=== PATIENT | female | born 1970 | race Caucasian/White ===

== ENCOUNTER 2018-09-15 10:04 | Inpatient (IN) ==
[2018-09-15 10:38] LABS: Baso % (Auto) 0.6 % (0.0-2.0); Eos # (Auto) 0.1 th/mm3 (0.0-0.4); Eos % (Auto) 1.2 % (0.0-4.0); Hematocrit 38.6 % (35.0-46.0); Hemoglobin 13.1 gm/dL (11.6-15.3); Lymph # (Auto) 1.7 th/mm3 (1.0-4.8); Lymph % (Auto) 21.3 % (9.0-44.0); Mean Corpuscular HGB Conc 34.1 % (32.0-36.0); Mean Corpuscular Hemoglobin 30.6 pg (27.0-34.0); Mean Corpuscular Volume 89.8 fL (80.0-100.0); Mean Platelet Volume 8.6 fL (7.0-11.0); Mono # (Auto) 0.6 th/mm3 (0.0-0.9); Mono % (Auto) 7.1 % (0.0-8.0); Neut # (Auto) 5.7 th/mm3 (1.8-7.7); Neut % (Auto) 69.8 % (16.0-70.0); Platelet Count 265 th/mm3 (150-450); Red Blood Count 4.29 mil/mm3 (4.00-5.30); Red Cell Distribution Width 12.9 % (11.6-17.2); White Blood Count 8.2 th/mm3 (4.0-11.0)
--- NOTE | 2018-09-15 10:44 | ED ---
HPI General Chief Complaint: Chest Pain Stated Complaint: Medical Time Seen by Provider: 09/15/18 10:18 Source: patient Mode of arrival: EMS Limitations: no limitations History of Present Illness HPI narrative: 47-year-old female complains of chest pain and dysphagia. Patient states that she had intermittent substernal chest pain with radiation to back for the past month. Patient states that the pain usually lasted about 30 minutes and resolved completely. Patient states that the pain is not associate with exertion. Patient states that she has daily chest pain. Patient also complained of trouble swallowing food recently. Patient states that she has a feeling of food stuck in the esophagus around the substernal area. Patient denies any nausea vomiting diarrhea. Patient states that the chest pains or pressure pain substernally with radiation to the back. Patient was seen by Dr. Doherty recently and had EKG done. EMS was called today. Patient was transported to ED for evaluation. Patient has history of hyperlipidemia. Patient denies history hypertension or diabetes. Patient is an ex-smoker. Patient has family history of heart disease. complaint: Reports chest pain STEMI Alert: No Onset (ago): minute(s) Duration: intermittent Onset: during rest Pain location: Reports substernal Severity: moderate Severity scale (1-10): 7 Quality: Reports tightness and aching Pain radiation: Reports back Relieving factors: nothing Exacerbating factors: nothing Treatments prior to arrival chest pain: Reports none Related Data Home Medications Medication Instructions Recorded Confirmed atorvastatin [Lipitor] 40 mg PO DAILY 09/15/18 09/15/18 norgestrel-ethinyl estradiol 1 tab PO DAILY 09/15/18 09/15/18 [Low-Ogestrel (28)] sertraline 50 mg PO DAILY 09/15/18 09/15/18 Allergies Allergy/AdvReac Type Severity Reaction Status Date / Time codeine Allergy Severe HIVES AND Verified 09/15/18 10:16 SHOCK penicillin G Allergy Severe ANAPHYLACTIC Verified 09/15/18 10:16 SHOCK Review of Systems ROS: all other systems reviewed are negative PMFSH Medical History Medical History Depression (Acute) High cholesterol (Acute) Social History Social History Smoking Status: Former smoker How Often Do You Have a Drink Containing Alcohol: 2 to 4 times a month Recent Travel in [facility] within the Last 8 Weeks: No Recent Out of Country Travel within the Last 8 Weeks: No Immunization History Tetanus Immunization: Unsure Exam Narrative Exam Narrative: GENERAL: Well-nourished, well-developed patient. SKIN: Focused skin assessment warm/dry. HEAD: Normocephalic. EYES: No scleral icterus. No injection or drainage. NECK: Supple, trachea midline. No JVD or lymphadenopathy. CARDIOVASCULAR: Regular rate and rhythm without murmurs, gallops, or rubs. RESPIRATORY: Breath sounds equal bilaterally. No accessory muscle use. GASTROINTESTINAL: Abdomen soft, non-tender, nondistended. MUSCULOSKELETAL: No cyanosis, or edema. BACK: Nontender without obvious deformity. No CVA tenderness. Neurologic exam normal. Course Initial Documented Vital Signs Temperature 99.4 F 09/15/18 10:17 Pulse Rate 84 09/15/18 10:17 Respiratory Rate 16 09/15/18 10:17 Blood Pressure 171/98 H 09/15/18 10:17 Pulse Oximetry 100 09/15/18 10:17 Last Documented Vital Signs Temperature 99.4 F 09/15/18 10:17 Pulse Rate 84 09/15/18 10:17 Respiratory Rate 16 09/15/18 10:17 Blood Pressure 171/98 H 09/15/18 10:17 Pulse Oximetry 100 09/15/18 10:17 Medical Decision Making MDM Narrative Medical decision making narrative: 47-year-old female with chest pain and trouble swallowing food. Medical Screen Exam Complete: Yes Emergency Medical Condition: Yes Differential Diagnosis Differential Diagnosis: Differential diagnosis including esophageal spasm, angina, [place], PE, pneumothorax, thoracic dissection. Lab Data Lab results reviewed: Yes I reviewed the patient's lab results. Result diagrams: 09/15/18 10:21 09/15/18 10:21 Lab Results 09/15/18 09/15/18 09/15/18 Range/Units 10:21 10:21 10:21 WBC 8.2 (4.0-11.0) th/mm3 RBC 4.29 (4.00-5.30) mil/mm3 Hgb 13.1 (11.6-15.3) gm/dL Hct 38.6 (35.0-46.0) % MCV 89.8 (80.0-100.0) fL MCH 30.6 (27.0-34.0) pg MCHC 34.1 (32.0-36.0) % RDW 12.9 (11.6-17.2) % Plt Count 265 (150-450) th/mm3 MPV 8.6 (7.0-11.0) fL Neut % (Auto) 69.8 (16.0-70.0) % Lymph % (Auto) 21.3 (9.0-44.0) % [place] % (Auto) 7.1 (0.0-8.0) % Eos % (Auto) 1.2 (0.0-4.0) % Baso % (Auto) 0.6 (0.0-2.0) % Neut # (Auto) 5.7 (1.8-7.7) th/mm3 Lymph # (Auto) 1.7 (1.0-4.8) th/mm3 [place] # (Auto) 0.6 (0.0-0.9) th/mm3 Eos # (Auto) 0.1 (0.0-0.4) th/mm3 Baso # (Auto) 0.0 (0.0-0.2) th/mm3 WBC Differential . Differential Comment Auto diff final PT 11.0 (9.8-11.6) sec INR 1.1 Ratio APTT 23.5 L (24.3-30.1) sec D-Dimer Quant (PE/DVT) 0.31 (0.00-0.50) mg/L FEU Sodium 139 (136-145) meq/L Potassium 3.8 (3.5-5.1) meq/L Chloride 108 H (98-107) meq/L Carbon Dioxide 23.4 (21.0-32.0) meq/L Anion Gap 8 (5-15) meq/L BUN 16 (7-18) mg/dL Creatinine 0.86 (0.50-1.00) mg/dL Estimated GFR 70 L (>89) mL/min Random Glucose 97 (74-106) mg/dL Calcium 8.1 L (8.5-10.1) mg/dL Total Bilirubin 0.4 (0.2-1.0) mg/dL AST 12 L (15-37) U/L ALT 26 (10-53) U/L Alkaline Phosphatase 53 (45-117) U/L Total Creatine Kinase 100 (26-192) U/L Troponin I Less than 0.02 L (0.02-0.05) ng/mL Total Protein 7.5 (6.4-8.2) g/dL Albumin 3.6 (3.4-5.0) g/dL Lipase 132 (73-393) U/L Imaging Data Attestation: I personally reviewed and interpreted this imaging study as follows : Radiologist's impression: Chest X-Ray 09/15/18 10:19 CONCLUSION: Negative examination. Discharge Plan Discharge Disposition Patient Disposition: 30 Still Patient Discharge Details Diagnosis: Chest pain, Dysphagia Physicians Team ED Provider: Jaswant Novoa Rxs /Orders / Referrals /Forms Prescriptions: No Action atorvastatin [Lipitor] 40 mg Tablet 40 mg PO DAILY RF: 0 norgestrel-ethinyl estradiol [Low-Ogestrel (28)] 0.3-30 mg-mcg Tablet 1 tab PO DAILY RF: 0 sertraline 50 mg Tablet 50 mg PO DAILY RF: 0 Discharge Instructions Patient Printed Instructions: Chest Pain (ED) Status ED Status: With Doctor
[2018-09-15 10:57] LABS: Activated Partial Thrombo Time 23.5 sec (24.3-30.1); Alanine Aminotransferase 26 U/L (10-53); Albumin 3.6 g/dL (3.4-5.0); Anion Gap 8 meq/L (5-15); Aspartate Aminotransferase 12 U/L (15-37); Blood Urea Nitrogen 16 mg/dL (7-18); Calcium 8.1 mg/dL (8.5-10.1); Carbon Dioxide 23.4 meq/L (21.0-32.0); Chloride 108 meq/L (98-107); Glomerular Filtration Rate 70 mL/min (>89); Glucose,Random 97 mg/dL (74-106); INR 1.1 Ratio; Lipase 132 U/L (73-393); Potassium 3.8 meq/L (3.5-5.1); Sodium 139 meq/L (136-145)
[2018-09-15 11:01] LABS: Alkaline Phosphatase 53 U/L (45-117); Total Protein 7.5 g/dL (6.4-8.2)
[2018-09-15 11:02] LABS: Creatine Kinase 100 U/L (26-192)
[2018-09-15 11:08] LABS: D-Dimer 0.31 mg/L FEU (0.00-0.50)
--- NOTE | 2018-09-15 11:10 | XR ---
EXAM DATE: 09/15/2018 10:19 AM EDT AGE/SEX: 47 years / Female INDICATIONS: Pain left shoulder and back, pressure and discomfort in chest CLINICAL DATA: This is the patient's initial encounter. Patient reports that signs and symptoms have been present for 3 days and indicates a pain score of 10/10. MEDICAL/SURGICAL HISTORY: None. Angioplasty. COMPARISON: No prior exams available for comparison. FINDINGS: A single AP view of the chest demonstrates the lungs to be symmetrically aerated without evidence of mass, infiltrate or effusion. The cardiomediastinal contours are unremarkable. Osseous structures a re intact. CONCLUSION: Negative examination. Electronically signed by: Jose Armando Flood MD 09/15/2018 11:08 AM EDT
[2018-09-15] MEDS ORDERED: Bisacodyl 10 MG Supp RECTAL PRN (12:33)
--- NOTE | 2018-09-15 13:01 | CT ---
EXAM DATE: 09/15/2018 11:33 AM EDT AGE/SEX: 47 years / Female INDICATIONS: Chest pain radiating to back and left arm for 1 month CLINICAL DATA: This is the patient's initial encounter. Patient reports that signs and symptoms have been present for 1 day and indicates a pain score of 7/10. MEDICAL/SURGICAL HISTORY: None. None. RADIATION DOSE: 15.84 CTDI (mGy) COMPARISON: No prior exams available for comparison. TECHNIQUE: Volumetric scanning was performed using a multi-row detector CT scanner during bolus infu juan ramon of 80 ml Omnipaque 350 (iohexol) nonionic water-soluble contrast as a single exam dose. The da ta was post processed with a variety of visualization algorithms including full volume maximum intens ity projection, multi-planar sliding thin slab reformation, curved planar reformation, and surface re ndering techniques. Using automated exposure control and adjustment of the mA and/or kV according to patient size, radiation dose was kept as low as reasonably achievable to obtain optimal diagnostic q uality images. DICOM format image data is available electronically for review and comparison. FINDINGS: Thoracic aorta is normal in caliber and appearance throughout. No evidence of aneurysm, stenosis or d issection. Classical three-vessel arch anatomy is identified in the visualized arch vessels are charles l. The abdominal aorta is normal in caliber and appearance throughout. Aortic visceral vessels are in tact and unremarkable. Specifically, the celiac, SMA and renal arteries are widely patent. There are accessory renal vessels bilaterally. ARLENE is patent. In the pelvis, the iliacs are normal in appearanc e. The common femoral arteries and visualized proximal thigh vessels are intact. The lungs are symmetrically aerated and clear. There is no evidence of mediastinal mass or adenopathy . No axillary adenopathy or chest wall destruction is evident. In the abdomen, there is a slightly less than 1 cm arterially enhancing focus in segment and a sec ond area of vague focal parenchymal enhancement anterolaterally in segment V. No biliary ductal dilat ation. The spleen, pancreas, adrenals and kidneys are normal. No evidence of retroperitoneal mass or adenopathy. In the pelvis, no mass, adenopathy or free fluid is identified. The urinary bladder and reproductive structures are normal. CONCLUSION: No acute vascular findings. Small enhancing foci in the liver are likely benign, potentially a small FNH in segment . Follow-up with elective outpatient hepatic MRI with contrast suggested Electronically signed by: Jose Armando Flood MD 09/15/2018 1:00 PM EDT
[2018-09-15 13:12] LABS: Chol/HDL Ratio 4.01 Ratio; HDL Cholesterol 54.1 mg/dL (40.0-60.0)
--- NOTE | 2018-09-15 14:25 | P.HP ---
History of Present Illness Primary Care Physician: Callie Cruz Chief Complaint: chest pain, upper back pain, pain with swallowing History of Present Illness: The patient is a very pleasant 47-year-old female with past medical history of hyperlipidemia, anxiety who came to the emergency room with complains of chest pain, back pain and dysphagia. Patient states that she had intermittent substernal chest pain 7/10 in intensity, intermittent, with radiation to back and left arm daily for the past month. Patient states that the pain usually lasted about 30 minutes and resolved completely. However her back pain is still persistent. Also reports associated diaphoresis in the morning. Patient states that the pain is not associate with exertion. no alleviating or aggravating factors reported. [place] ASA on the way to ED. Reports over the past month she had daily chest pain. Patient also complained of trouble swallowing food recently. States that she has a feeling of food being stuck in the esophagus around the substernal area. She did drink water however pain did not disappear. Patient denies any nausea, vomiting, diarrhea. Patient states that the chest pains and pressure pain substernally with radiation to the back and also to the left arm. The pain is reproducible somehow by palpation in the back. Patient was seen by Dr. Weaver recently and had EKG done. EMS was called today. Patient was transported to ED for evaluation. Patient denies history hypertension or diabetes. Patient is an ex-smoker. Patient has family history of heart disease her father with multiple IN starting at the age of 48. Patient reports having stress over the past months. Inpatient Certification: I certify that the inpatient services were ordered in accordance with Medicare regulations governing the order. This includes certification that hospital inpatient services are reasonable and necessary and in the case of services not specified as inpatient-only under 42 CFR 419.22(n), that they are appropriately provided as inpatient services in accordance to with the 2-midnight benchmark under 43 CFR 412.3(e) Estimated Total Length of Stay (Days): 3 Plans for Post Hospital Care: Home Review of Systems All other systems reviewed negative except as stated in HPI PMFSH - History History Provided By: Patient, Household Assistant / EMT - Medical History Medical History: Medical History (Last Reviewed 09/15/18 @ 14:40 by Adri Iniguez MD) Depression High cholesterol - Surgical History Surgical History: Surgical History (Last Updated 09/15/18 @ 14:40 by Adri Iniguez MD) H/O breast augmentation - Family History Family History: Family History (Last Updated 09/15/18 @ 14:41 by Adri Iniguez MD) Father Myocardial infarct Diabetes HLD (hyperlipidemia) - Social History I have reviewed the patient's Social History: Yes - Tobacco History Smoking Status: Former smoker - Alcohol History How Often Do You Have a Drink Containing Alcohol: 2 to 4 times a month - Travel History Recent Travel in the [place] Within the Last 8 Weeks: No Recent Travel Out of the Country Within the Last 8 Weeks: No - Immunization History Tetanus Immunization: Unsure Medications and Allergies Active Medications: Active Medications Al Hydroxide/Mg Hydroxide (Milk Of Magnesia Liq) 30 ml PO Q12H PRN PRN Reason: Mild Constipation Atorvastatin Calcium (Lipitor) 40 mg PO DAILY DEMETRIS Bisacodyl (Dulcolax Supp) 10 mg RECTAL DAILY PRN PRN Reason: SEVERE CONSITIPATION Lactulose (Lactulose Liq) 30 ml PO DAILY PRN PRN Reason: SEVERE CONSITIPATION Ondansetron HCl (Zofran Inj) 4 mg IV.PUSH Q6H PRN PRN Reason: NAUSEA OR VOMITING Pt Own Med: Norgestrel-Ethinyl Estradiol [Low- Ogestrel 28] 0 each PO DAILY DEMETRIS Senna/Docusate Sodium (Kiera-Colace) 1 tab PO BID DEMETRIS Sennosides (Senokot) 17.2 mg PO Q12H PRN PRN Reason: Moderate Constipation Sertraline HCl (Zoloft) 50 mg PO DAILY DEMETRIS Allergies Allergy/AdvReac Type Severity Reaction Status Date / Time codeine Allergy Severe HIVES AND Verified 09/15/18 10:16 SHOCK penicillin G Allergy Severe ANAPHYLACTIC Verified 09/15/18 10:16 SHOCK Home Medications Medication Instructions Recorded Confirmed Type atorvastatin [Lipitor] 40 mg PO DAILY 09/15/18 09/15/18 History norgestrel-ethinyl estradiol 1 tab PO DAILY 09/15/18 09/15/18 History [Low-Ogestrel (28)] sertraline 50 mg PO DAILY 09/15/18 09/15/18 History Exam Vital signs: Vital Signs 09/15/18 10:17 09/15/18 11:34 09/15/18 13:19 Temperature 99.4 F Pulse Rate 84 76 83 Respiratory Rate 16 17 17 Blood Pressure 171/98 H 164/94 H 157/81 H Pulse Oximetry 100 100 100 Intake & Output 09/14/18 09/15/18 09/15/18 18:59 06:59 18:59 Weight 74.843 kg Narrative: GENERAL: Very pleasant 47 yo F appearing younger than the stated age. SKIN: Warm and dry. HEAD: Atraumatic. Normocephalic. EYES: Pupils equal and round. No scleral icterus. No injection or drainage. ENT: No nasal bleeding or discharge. Mucous membranes pink and moist. NECK: Trachea midline. No JVD. CARDIOVASCULAR: Regular rate and rhythm. RESPIRATORY: No accessory muscle use. Clear to auscultation. Breath sounds equal bilaterally. GASTROINTESTINAL: Abdomen soft, non-tender, nondistended. Hepatic and splenic margins not palpable. MUSCULOSKELETAL: Left trapezius muscle tenderness and cervical paravertebral muscle spasm,, tender to palpation, Extremities without clubbing, cyanosis, or edema. No obvious deformities. NEUROLOGICAL: Awake and alert. No obvious cranial nerve deficits. Motor grossly within normal limits. Five out of 5 muscle strength in the arms and legs. Normal speech. PSYCHIATRIC: Appropriate mood and affect; insight and judgment normal. Results - Labs CBC & Chem 7: 09/15/18 10:21 09/15/18 10:21 Labs: Laboratory Results - last 24 hr 09/15/18 09/15/18 09/15/18 10:21 10:21 10:21 WBC 8.2 RBC 4.29 Hgb 13.1 Hct 38.6 MCV 89.8 MCH 30.6 MCHC 34.1 RDW 12.9 Plt Count 265 MPV 8.6 Neut % (Auto) 69.8 Lymph % (Auto) 21.3 [place] % (Auto) 7.1 Eos % (Auto) 1.2 Baso % (Auto) 0.6 Neut # (Auto) 5.7 Lymph # (Auto) 1.7 [place] # (Auto) 0.6 Eos # (Auto) 0.1 Baso # (Auto) 0.0 WBC Differential . Differential Comment Auto diff final PT 11.0 INR 1.1 APTT 23.5 L D-Dimer Quant (PE/DVT) 0.31 Sodium 139 Potassium 3.8 Chloride 108 H Carbon Dioxide 23.4 Anion Gap 8 BUN 16 Creatinine 0.86 Estimated GFR 70 L Random Glucose 97 Calcium 8.1 L Total Bilirubin 0.4 AST 12 L ALT 26 Alkaline Phosphatase 53 Total Creatine Kinase 100 Troponin I Less than 0.02 L Total Protein 7.5 Albumin 3.6 Triglycerides Cholesterol LDL Cholesterol, Calc HDL Cholesterol Cholesterol/HDL Ratio Lipase 132 09/15/18 10:21 WBC RBC Hgb Hct MCV MCH MCHC RDW Plt Count MPV Neut % (Auto) Lymph % (Auto) [place] % (Auto) Eos % (Auto) Baso % (Auto) Neut # (Auto) Lymph # (Auto) [place] # (Auto) Eos # (Auto) Baso # (Auto) WBC Differential Differential Comment PT INR APTT D-Dimer Quant (PE/DVT) Sodium Potassium Chloride Carbon Dioxide Anion Gap BUN Creatinine Estimated GFR Random Glucose Calcium Total Bilirubin AST ALT Alkaline Phosphatase Total Creatine Kinase Troponin I Total Protein Albumin Triglycerides 85 Cholesterol 217 H LDL Cholesterol, Calc 146 H HDL Cholesterol 54.1 Cholesterol/HDL Ratio 4.01 Lipase - Imaging Impressions Thoracic Aorta CT 09/15/18 10:18 CONCLUSION: No acute vascular findings. Small enhancing foci in the liver are likely benign, potentially a small FNH in segment . Follow-up with elective outpatient hepatic MRI with contrast suggested Chest X-Ray 09/15/18 10:19 CONCLUSION: Negative examination. Caprini VTE Risk Assessment Caprini VTE Risk Assessment: No/Low Risk (score <= 1) Caprini Risk Assessment Model: Point Value = 1 Point Value = 2 Point Value = 3 Point Value = 5 Age 41-60 Minor surgery BMI > 25 kg/m2 Swollen legs Varicose veins or History of unexplained or recurrent spontaneous Oral contraceptives or hormone replacement Sepsis (< 1 month) Serious lung disease, including pneumonia (< 1 month) Abnormal pulmonary function Acute myocardial infarction Congestive heart failure (< 1 month) History of inflammatory bowel disease Medical patient at bed rest Age 61-74 Arthroscopic surgery Major open surgery (> 45 min) Laparoscopic surgery (> 45 min) Malignancy Confined to bed (> 72 hours) Immobilizing plaster cast Central venous access Age >= 75 History of VTE Family history of VTE Factor V Leiden Prothrombin [id number] Lupus anticoagulant Anticardiolipin antibodies Elevated serum homocysteine Heparin-induced thrombocytopenia Other congenital or acquired thrombophilia Stroke (< 1 month) Elective arthroplasty Hip, pelvis, or leg fracture Acute spinal cord injury (< 1 month) Prophylaxis Regimen: Total Risk Factor Score Risk Level Prophylaxis Regimen 0-1 Low Early ambulation 2 Moderate Order ONE of the following: *Sequential Compression Device (SCD) *Heparin 5000 units SQ BID 3-4 Higher Order ONE of the following medications: *Heparin 5000 units SQ TID *Enoxaparin/Lovenox 40 mg SQ daily (WT < 150 kg, CrCl > 30 mL/min) *Enoxaparin/Lovenox 30 mg SQ daily (WT < 150 kg, CrCl > 10-29 mL/min) *Enoxaparin/Lovenox 30 mg SQ BID (WT < 150 kg, CrCl > 30 mL/min) AND/OR *Sequential Compression Device (SCD) 5 or more Highest Order ONE of the following medications: *Heparin 5000 units SQ TID (Preferred with Epidurals) *Enoxaparin/Lovenox 40 mg SQ daily (WT < 150 kg, CrCl > 30 mL/min) *Enoxaparin/Lovenox 30 mg SQ daily (WT < 150 kg, CrCl > 10-29 mL/min) *Enoxaparin/Lovenox 30 mg SQ BID (WT < 150 kg, CrCl > 30 mL/min) AND *Sequential Compression Device (SCD) Assessment and Plan - Plan Very pleasant 47-year-old female with past medical history of hyperlipidemia, anxiety who presented to the emergency room with complaints of chest pain, back pain pain with swallowing Chest pain radiating to the back and also left arm Back pain Muscle spasm Odynophagia Hyperlipidemia Anxiety Incidental 9.4 mm liver nodule found on CT Chest x-ray reviewed and negative CTA chest also reviewed and findings discussed with ER physician and also with the patient. There is no PE, normal aorta, incidental 9.4 mm liver nodule. Discussed with the patient to follow-up as outpatient imaging might need MRI of the liver as outpatient First troponin is negative, trend troponin is EKG reviewed no ischemic changes normal EKG. Will monitor on telemetry. Will repeat EKGs. Consult Dr. Hsu cardiology Patient also with odynophagia will consult GI Morphine for severe chest pain or breakthrough pain [place] 5/325 for pain And Flexeril 5 mg 3 times daily as needed some muscle relaxer Give Ativan prn for breakthrough anxiety Restart home medications as appropriate Consult OT tomorrow DVT prophylaxis SCDs/teds ambulation Code Status: Full code Discussed Condition With: The patient, nurse, ED physician Dr. Novoa
[2018-09-15] MEDS ORDERED: Morphine Sulfate Inj 2 MG/ML Vial IV.PUSH PRN (14:26)
[2018-09-15] MEDS ORDERED: LORazepam 0.5 MG Tablet PO PRN (14:53)
--- NOTE | 2018-09-15 16:52 | P.CONGI ---
History of Present Illness Consult date: 09/15/18 Consult reason: Dysphasia Chief complaint: Chest pain, Dysphasia History of Present Illness: This is a 47-year-old female who came into the emergency room today for intermittent chest pain epigastric region which has waxed and waned over the past month patient states that she got up this a.m. and felt like she was having a heart attack that was so much pressure in her chest she also notes that this pain radiates back into her mid back. According to the patient and the record she does have daily chest pain and also describes it as dysphasia with a pressure sensation unaffected by food. Currently patient denies any abdominal pain no diarrhea no constipation. 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 She also notes increased stressors over the past 6 months. Patient also notes positive family history of uncle in his late 50s early 60s of colon cancer. Current labs reveal hemoglobin 13.1, WBC count 8.2, PT/INR 1.1, bilirubin and LFTs show no elevation along with normal lipase and alkaline phosphatase. Initial cardiac workup has been started which include CT scan of the chest which showed small enhanced foci liver lesion likely benign, possible focal nodular hyper dysplasia otherwise unremarkable. Patient does note colonoscopy this past year for her positive family history per Dr. Ivan but no previous EGD. Patient has used Tums in the past for her GERD symptoms but is never been on any PPI or [id number] medications. Patient does note rare social alcohol and is an ex-smoker. Gastroenterology has been consulted to assist with her symptom management, evaluation, as well as plan of care <Rose Jang - Last Filed: 09/15/18 16:32> Review of Systems All other systems reviewed negative except as stated in HPI <Rose Jang - Last Filed: 09/15/18 16:32> PMFSH - History History Provided By: Patient, Spring Tester / EMT - Medical History Medical History: Medical History (Last Reviewed 09/15/18 @ 14:40 by Adri Iniguez MD) Depression High cholesterol - Surgical History Surgical History: Surgical History (Last Updated 09/15/18 @ 14:40 by Adri Iniguez MD) H/O breast augmentation - Family History Family History: Family History (Last Updated 09/15/18 @ 14:41 by Adri Iniguez MD) Father Myocardial infarct Diabetes HLD (hyperlipidemia) - Tobacco History Smoking Status: Former smoker - Alcohol History How Often Do You Have a Drink Containing Alcohol: 2 to 4 times a month - Travel History Recent Travel in the [place] Within the Last 8 Weeks: No Recent Travel Out of the Country Within the Last 8 Weeks: No - Immunization History Tetanus Immunization: Unsure <Rose Jang - Last Filed: 09/15/18 16:32> - Medical History Medical History: Medical History (Last Reviewed 09/15/18 @ 14:40 by Ardi Iniguez MD) Depression High cholesterol - Surgical History Surgical History: Surgical History (Last Updated 09/15/18 @ 14:40 by Adri Iniguez MD) H/O breast augmentation - Family History Family History: Family History (Last Updated 09/15/18 @ 14:41 by Adri Iniguez MD) Father Myocardial infarct Diabetes HLD (hyperlipidemia) <Alden Elmore - Last Filed: 09/15/18 19:41> Medications and Allergies Active Medications: Active Medications Hydrocodone Bitart/Acetaminophen ([place] 5/325) 1 tab PO Q6H PRN PRN Reason: moderate pain 3-10 Al Hydroxide/Mg Hydroxide (Milk Of Magnesia Liq) 30 ml PO Q12H PRN PRN Reason: Mild Constipation Atorvastatin Calcium (Lipitor) 40 mg PO DAILY DEMETRIS Bisacodyl (Dulcolax Supp) 10 mg RECTAL DAILY PRN PRN Reason: SEVERE CONSITIPATION Cyclobenzaprine HCl (Flexeril) 5 mg PO Q8H PRN PRN Reason: muscle spasm Lactulose (Lactulose Liq) 30 ml PO DAILY PRN PRN Reason: SEVERE CONSITIPATION Lorazepam (Ativan) 0.5 mg PO Q8H PRN PRN Reason: breakthrough anxiety Morphine Sulfate (Morphine Inj) 2 mg IV.PUSH Q6HR PRN PRN Reason: severe chest pain or breakth Ondansetron HCl (Zofran Inj) 4 mg IV.PUSH Q6H PRN PRN Reason: NAUSEA OR VOMITING Pt Own Med: Norgestrel-Ethinyl Estradiol [Low- Ogestrel 28] 0 each PO DAILY DEMETRIS Senna/Docusate Sodium (Kiera-Colace) 1 tab PO BID [facility] Sennosides (Senokot) 17.2 mg PO Q12H PRN PRN Reason: Moderate Constipation Sertraline HCl (Zoloft) 50 mg PO DAILY [facility] <Rose Jang - Last Filed: 09/15/18 16:32> Active Medications: Active Medications Hydrocodone Bitart/Acetaminophen ([place] 5/325) 1 tab PO Q6H PRN PRN Reason: moderate pain 3-10 Last Admin: 09/15/18 17:11 Dose: 1 tab Al Hydroxide/Mg Hydroxide (Milk Of Magnesia Liq) 30 ml PO Q12H PRN PRN Reason: Mild Constipation Atorvastatin Calcium (Lipitor) 40 mg PO DAILY [facility] Bisacodyl (Dulcolax Supp) 10 mg RECTAL DAILY PRN PRN Reason: SEVERE CONSITIPATION Cyclobenzaprine HCl (Flexeril) 5 mg PO Q8H PRN PRN Reason: muscle spasm Enoxaparin Sodium (Lovenox Inj) 50 mg SQ Q12HR [facility] Lactulose (Lactulose Liq) 30 ml PO DAILY PRN PRN Reason: SEVERE CONSITIPATION Lorazepam (Ativan) 0.5 mg PO Q8H PRN PRN Reason: breakthrough anxiety Morphine Sulfate (Morphine Inj) 2 mg IV.PUSH Q6HR PRN PRN Reason: severe chest pain or breakth Ondansetron HCl (Zofran Inj) 4 mg IV.PUSH Q6H PRN PRN Reason: NAUSEA OR VOMITING Pt Own Med: Norgestrel-Ethinyl Estradiol [Low- Ogestrel 28] 0 each PO DAILY [facility] Senna/Docusate Sodium (Kiera-Colace) 1 tab PO BID [facility] Sennosides (Senokot) 17.2 mg PO Q12H PRN PRN Reason: Moderate Constipation Sertraline HCl (Zoloft) 50 mg PO DAILY [facility] <Alden Elmore - Last Filed: 09/15/18 19:41> Allergies Allergy/AdvReac Type Severity Reaction Status Date / Time codeine Allergy Severe HIVES AND Verified 09/15/18 10:16 SHOCK penicillin G Allergy Severe ANAPHYLACTIC Verified 09/15/18 10:16 SHOCK Home Medications Medication Instructions Recorded Confirmed Type atorvastatin [Lipitor] 40 mg PO DAILY 09/15/18 09/15/18 History norgestrel-ethinyl estradiol 1 tab PO DAILY 09/15/18 09/15/18 History [Low-Ogestrel (28)] sertraline 50 mg PO DAILY 09/15/18 09/15/18 History Exam Vital signs: Vital Signs 09/15/18 10:17 09/15/18 11:34 09/15/18 13:19 Temperature 99.4 F Pulse Rate 84 76 83 Respiratory Rate 16 17 17 Blood Pressure 171/98 H 164/94 H 157/81 H Pulse Oximetry 100 100 100 Intake & Output 09/14/18 09/15/18 09/15/18 18:59 06:59 18:59 Weight 74.843 kg - Constitutional moderate distress, cooperative, agitated (Mild anxiety over current condition) - Routine HEENT Exam Head: Present: normocephalic, atraumatic ENT: Present: mucous membranes moist - Routine Neck Exam Present: supple - Routine Respiratory Exam Present: accessory muscle use (Even, unlabored no obvious shortness of breath) - Routine Cardiovascular Exam Present: S1, S2 - Routine Abdominal Exam Present: soft (Epigastric and mid chest pain radiates into her back), normoactive bowel sounds (No tenderness no distention no diarrhea no constipation) - Routine Skin Exam Present: intact <Rose Jang - Last Filed: 09/15/18 16:32> Vital signs: Vital Signs 09/15/18 10:17 09/15/18 11:34 09/15/18 13:19 Temperature 99.4 F Pulse Rate 84 76 83 Respiratory Rate 16 17 17 Blood Pressure 171/98 H 164/94 H 157/81 H Pulse Oximetry 100 100 100 09/15/18 15:00 Temperature Pulse Rate Respiratory Rate Blood Pressure Pulse Oximetry 100 Intake & Output 09/15/18 09/15/18 09/16/18 06:59 18:59 06:59 Intake Total 240 / 240 Output Total 100 / 100 Balance 140 / 140 Weight 74.843 kg Intake: Oral 240 / 240 Output: Urine 100 / 100 <Alden Elmore - Last Filed: 09/15/18 19:41> Results - Labs CBC & Chem 7: 09/15/18 10:21 09/15/18 10:21 Labs: Laboratory Results - last 24 hr 09/15/18 09/15/18 09/15/18 10:21 10:21 10:21 WBC 8.2 RBC 4.29 Hgb 13.1 Hct 38.6 MCV 89.8 MCH 30.6 MCHC 34.1 RDW 12.9 Plt Count 265 MPV 8.6 Neut % (Auto) 69.8 Lymph % (Auto) 21.3 [place] % (Auto) 7.1 Eos % (Auto) 1.2 Baso % (Auto) 0.6 Neut # (Auto) 5.7 Lymph # (Auto) 1.7 [place] # (Auto) 0.6 Eos # (Auto) 0.1 Baso # (Auto) 0.0 WBC Differential . Differential Comment Auto diff final PT 11.0 INR 1.1 APTT 23.5 L D-Dimer Quant (PE/DVT) 0.31 Sodium 139 Potassium 3.8 Chloride 108 H Carbon Dioxide 23.4 Anion Gap 8 BUN 16 Creatinine 0.86 Estimated GFR 70 L Random Glucose 97 Calcium 8.1 L Total Bilirubin 0.4 AST 12 L ALT 26 Alkaline Phosphatase 53 Total Creatine Kinase 100 Troponin I Less than 0.02 L Total Protein 7.5 Albumin 3.6 Triglycerides Cholesterol LDL Cholesterol, Calc HDL Cholesterol Cholesterol/HDL Ratio Lipase 132 09/15/18 09/15/18 10:21 15:03 WBC RBC Hgb Hct MCV MCH MCHC RDW Plt Count MPV Neut % (Auto) Lymph % (Auto) [place] % (Auto) Eos % (Auto) Baso % (Auto) Neut # (Auto) Lymph # (Auto) [place] # (Auto) Eos # (Auto) Baso # (Auto) WBC Differential Differential Comment PT INR APTT D-Dimer Quant (PE/DVT) Sodium Potassium Chloride Carbon Dioxide Anion Gap BUN Creatinine Estimated GFR Random Glucose Calcium Total Bilirubin AST ALT Alkaline Phosphatase Total Creatine Kinase Troponin I Less than 0.02 L Total Protein Albumin Triglycerides 85 Cholesterol 217 H LDL Cholesterol, Calc 146 H HDL Cholesterol 54.1 Cholesterol/HDL Ratio 4.01 Lipase - Imaging Impressions Thoracic Aorta CT 09/15/18 10:18 CONCLUSION: No acute vascular findings. Small enhancing foci in the liver are likely benign, potentially a small FNH in segment . Follow-up with elective outpatient hepatic MRI with contrast suggested Chest X-Ray 09/15/18 10:19 CONCLUSION: Negative examination. <Rose Jang - Last Filed: 09/15/18 16:32> - Labs CBC & Chem 7: 09/15/18 10:21 09/15/18 10:21 Labs: Laboratory Results - last 24 hr 09/15/18 09/15/18 09/15/18 10:21 10:21 10:21 WBC 8.2 RBC 4.29 Hgb 13.1 Hct 38.6 MCV 89.8 MCH 30.6 MCHC 34.1 RDW 12.9 Plt Count 265 MPV 8.6 Neut % (Auto) 69.8 Lymph % (Auto) 21.3 [place] % (Auto) 7.1 Eos % (Auto) 1.2 Baso % (Auto) 0.6 Neut # (Auto) 5.7 Lymph # (Auto) 1.7 [place] # (Auto) 0.6 Eos # (Auto) 0.1 Baso # (Auto) 0.0 WBC Differential . Differential Comment Auto diff final PT 11.0 INR 1.1 APTT 23.5 L D-Dimer Quant (PE/DVT) 0.31 Sodium 139 Potassium 3.8 Chloride 108 H Carbon Dioxide 23.4 Anion Gap 8 BUN 16 Creatinine 0.86 Estimated GFR 70 L Random Glucose 97 Calcium 8.1 L Total Bilirubin 0.4 AST 12 L ALT 26 Alkaline Phosphatase 53 Total Creatine Kinase 100 Troponin I Less than 0.02 L Total Protein 7.5 Albumin 3.6 Triglycerides Cholesterol LDL Cholesterol, Calc HDL Cholesterol Cholesterol/HDL Ratio Lipase 132 Urine Color Urine Clarity Urine pH Ur Specific [place] Urine Protein Urine Glucose (UA) Urine Ketones Urine Occult Blood Urine Nitrate Urine Bilirubin Urine Urobilinogen Ur Leukocyte Esterase Urine RBC Urine WBC Ur Squamous Epith Cells Urine Bacteria Urine Mucus Micro UA Comment Ur Microscopic Review Urine Culture Comments 09/15/18 09/15/18 09/15/18 10:21 15:03 17:15 WBC RBC Hgb Hct MCV MCH MCHC RDW Plt Count MPV Neut % (Auto) Lymph % (Auto) [place] % (Auto) Eos % (Auto) Baso % (Auto) Neut # (Auto) Lymph # (Auto) [place] # (Auto) Eos # (Auto) Baso # (Auto) WBC Differential Differential Comment PT INR APTT D-Dimer Quant (PE/DVT) Sodium Potassium Chloride Carbon Dioxide Anion Gap BUN Creatinine Estimated GFR Random Glucose Calcium Total Bilirubin AST ALT Alkaline Phosphatase Total Creatine Kinase Troponin I Less than 0.02 L Total Protein Albumin Triglycerides 85 Cholesterol 217 H LDL Cholesterol, Calc 146 H HDL Cholesterol 54.1 Cholesterol/HDL Ratio 4.01 Lipase Urine Color Yellow Urine Clarity Hazy H Urine pH 5.0 Ur Specific [place] 1.055 H Urine Protein Negative Urine Glucose (UA) Negative Urine Ketones Negative Urine Occult Blood Negative Urine Nitrate Negative Urine Bilirubin Negative Urine Urobilinogen Less than 2 Ur Leukocyte Esterase Small H Urine RBC 2 Urine WBC 5 Ur Squamous Epith Cells 7 Urine Bacteria Rare H Urine Mucus Few H Micro UA Comment Culture not ind Ur Microscopic Review Not Reportable Urine Culture Comments Culture not ind - Imaging Impressions Thoracic Aorta CT 09/15/18 10:18 CONCLUSION: No acute vascular findings. Small enhancing foci in the liver are likely benign, potentially a small FNH in segment . Follow-up with elective outpatient hepatic MRI with contrast suggested Chest X-Ray 09/15/18 10:19 CONCLUSION: Negative examination. <Alden Elmore E - Last Filed: 09/15/18 19:41> Assessment and Plan - Plan 47-year-old female who came into the emergency room today for intermittent chest pain epigastric region which has waxed and waned over the past month patient states that she got up this a.m. and felt like she was having a heart attack that was so much pressure in her chest she also notes that this pain radiates back into her mid back. According to the patient and the record she does have daily chest pain and also describes it as dysphasia with a pressure sensation unaffected by food. Currently patient denies any abdominal pain no diarrhea no constipation. 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 She also notes increased stressors over the past 6 months. Patient also notes positive family history of uncle in his late 50s early 60s of colon cancer. Current labs reveal hemoglobin 13.1, WBC count 8.2, PT/INR 1.1, bilirubin and LFTs show no elevation along with normal lipase and alkaline phosphatase. Initial cardiac workup has been started which include CT scan of the chest which showed small enhanced foci liver lesion likely benign, possible focal nodular hyper dysplasia otherwise unremarkable. Patient does note colonoscopy this past year for her positive family history per Dr. Ivan but no previous EGD. Patient has used Tums in the past for her GERD symptoms but is never been on any PPI or [id number] medications. Patient does note rare social alcohol and is an ex-smoker. Gastroenterology has been consulted to assist with her symptom management, evaluation, as well as plan of care Midsternal chest pain with dysphasia/possibly dyspepsia and the sensation of food getting stuck in her esophagus. Discomfort seems to wax and wane but is still fairly constant today. This pain could be related to Schatzki's ring / esophageal stricture, chest pain/pressure does radiate into the back with essentially negative CT of the chest. Patient came in and went in to rule out cardiac event protocol. 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 Dyspepsia /GERD symptoms have minimized over the past 15 years. Denies any nausea or vomiting Positive family history of colon cancer uncle in his late 50s early 60s Previous colonoscopy with Dr. Ivan 1 year ago, uneventful and no previous EGD Cardiac consult and workup is pending, once patient is cleared patient will need EGD with possible dilation. Patient has negative troponins so far. Plan Diet n.p.o. or clear liquids this p.m. N.p.o. at midnight Plan for EGD with possible dilation dependent on cardiac clearance Monitor lab Further recommendations to follow Patient was seen per myself and Dr. Elmore, note was written on her behalf <Rose Jang M - Last Filed: 09/15/18 16:32> - Plan Patient seen and examined Agree with above history and physical Continue with current supportive care Monitor labs EGD once cleared by cardiology <Alden Elmore - Last Filed: 09/15/18 19:41>
[2018-09-15 18:08] LABS: Bacteria,Urine Rare /hpf; Bilirubin,Urine Negative (Negative); Clarity,Urine Hazy (Clear); Color,Urine Yellow (Yellw/Straw); Glucose,Urine (UA) Negative (Negative); Leukocyte Esterase,Urine Small (Negative); Mucus,Urine Few /lpf (Occasional); Nitrite,Urine Negative (Negative); Specific Gravity,Urine 1.055 (1.002-1.035); Squamous Epithelial Cell,Urine 7 /hpf (0-5)
--- NOTE | 2018-09-15 19:10 | MB ---
cc: Alyssia Hsu MD DATE: 09/15/2018 REASON FOR CONSULTATION: Chest pain. HISTORY OF PRESENT ILLNESS: Ms. Bennett is a 47-year-old female who presented for chest and back pain as well as dysphagia. She reports the back pain that has been ongoing for months. She more recently has had intermittent chest pain that today has become a substernal constant chest discomfort. This started in the constant phase for about 24 hours. She also notes that she has difficulty swallowing with a pressure sensation in her chest. She notes that this has not been impacted by activities such as walking. That is her preferred exercise. She has not had any more strenuous activities. She notes that she has had intermittent episodes of back pain, which has progressed and is quite severe and unremitting at this time. PAST MEDICAL HISTORY: Significant for depression and hyperlipidemia. She denies any history of diabetes, hypertension. PAST SURGICAL HISTORY: Includes breast augmentation. FAMILY HISTORY: Positive for CAD, diabetes and hyperlipidemia. SOCIAL HISTORY: The patient is a former smoker. CURRENT MEDICATIONS: Include: 1. Atorvastatin 40 mg at bedtime. ALLERGIES: CODEINE AND PENICILLIN. PHYSICAL EXAMINATION: VITAL SIGNS: 157/81. GENERAL: She is a well-appearing female, who is in mild distress with regard to her back and somewhat agitated. NECK: Free from JVD. There is some tenderness at the base of the neck over the spine. LUNGS: Bilaterally clear to auscultation. CARDIOVASCULAR: She has a normal S1 and S2. Did not appreciate any murmurs, rubs or gallops. ABDOMEN: Soft. There are normal bowel sounds. EXTREMITIES: Free from edema. LABORATORY DATA: Significant for serial troponins of less than 0.02/less than 0.02. Her LDL is 146. ECG shows a normal sinus rhythm with poor R-wave progression. Chest x-ray was negative for any acute process. Thoracic abdominal aorta CT shows no acute vascular findings. There are small enhancing foci in the liver. The thoracic aorta was a normal caliber. IMPRESSION: 1. Atypical chest pain - the patient certainly has several cardiovascular risk factors. Her presentation is a bit unusual for an ischemic etiology. At this point, her ECG and enzymes are negative x2. We will obtain a third set. I did discuss with her further evaluation with a cardiac catheterization versus a nuclear stress test. The risks and benefits of both were discussed and she was rather certain she does not want a heart catheterization unless her heart enzymes are elevated. She in fact requested to be discharged home. I told her that I thought it would be best if she stayed in the hospital for at least a stress test at this point. Ideally, I would like to get her pain free. This may be quite difficult though as her pain has been rather chronic in nature. 2. Dysphagia - GI consult is noted. They would like to do an EGD and possible dilation provided her cardiac workup is negative. I do believe this would be reasonable if her stress test is not ischemic. 3. Elevated blood pressure - the patient's pressure is quite elevated. She reports this is unusual for her. We will observe her for now and this is felt likely secondary to her pain. 4. Neck tenderness- The patient and I discussed CT of neck/ spine for further evaluation and she declined at this time. Alysisa Hsu MD BAB/ct , 05:41 PM , 05:51 PM [place]
--- NOTE | 2018-09-15 19:29 | ECG ---
Date Performed: 09/15/2018 Time Performed: 15:23:36 PTAGE: 47 years EKG: Sinus rhythm . Poor R wave progression - probable normal variant Borderline ECG No significant change from prior e lectrocardiogram. PREVIOUS TRACING : 09/15/2018 10.25 DOCTOR: Albaro Delacruz Interpretating Date/Time 09/15/2018 19:27:47
[2018-09-15] MEDS: Enoxaparin Inj 60 MG/0.6 ML Syringe SQ SCH (21:14)
[2018-09-15] MEDS: Senna/Docusate Sodium 8.6/50 MG Tablet PO SCH (21:15)
[2018-09-16 06:15] LABS: Baso % (Auto) 0.8 % (0.0-2.0); Eos # (Auto) 0.2 th/mm3 (0.0-0.4); Eos % (Auto) 3.4 % (0.0-4.0); Lymph % (Auto) 35.2 % (9.0-44.0); Mean Corpuscular HGB Conc 33.4 % (32.0-36.0); Mean Corpuscular Hemoglobin 30.3 pg (27.0-34.0); Mean Corpuscular Volume 90.7 fL (80.0-100.0); Mean Platelet Volume 8.7 fL (7.0-11.0); Mono # (Auto) 0.5 th/mm3 (0.0-0.9); Mono % (Auto) 8.1 % (0.0-8.0); Neut % (Auto) 52.5 % (16.0-70.0); Platelet Count 235 th/mm3 (150-450); Red Cell Distribution Width 13.1 % (11.6-17.2); White Blood Count 5.8 th/mm3 (4.0-11.0)
[2018-09-16 06:43] LABS: Alanine Aminotransferase 21 U/L (10-53); Aspartate Aminotransferase 10 U/L (15-37); Calcium 8.1 mg/dL (8.5-10.1); Chloride 109 meq/L (98-107); Glomerular Filtration Rate 69 mL/min (>89); Glucose,Random 84 mg/dL (74-106); Potassium 3.8 meq/L (3.5-5.1); Sodium 141 meq/L (136-145)
[2018-09-16 06:50] LABS: Albumin 3.3 g/dL (3.4-5.0); Alkaline Phosphatase 49 U/L (45-117); Anion Gap 7 meq/L (5-15); Blood Urea Nitrogen 12 mg/dL (7-18); Total Protein 6.9 g/dL (6.4-8.2)
[2018-09-16] MEDS: Enoxaparin Inj 60 MG/0.6 ML Syringe SQ SCH (08:12)
[2018-09-16] MEDS: Senna/Docusate Sodium 8.6/50 MG Tablet PO SCH (08:13)
[2018-09-16] MEDS ORDERED: NORGESTREL ETHINYL ESTRADIOL PO SCH (09:00)
[2018-09-16] MEDS ORDERED: Sertraline 50 MG Tablet PO SCH (09:00)
[2018-09-16 09:16] VITALS: RESP 18
--- NOTE | 2018-09-16 09:34 | P.PNIM ---
Subjective Interval history: Chief Complaint: chest pain, upper back pain, pain with swallowing History of Present Illness: The patient is a very pleasant 47-year-old female with past medical history of hyperlipidemia, anxiety who came to the emergency room with complains of chest pain, back pain and dysphagia. Patient states that she had intermittent substernal chest pain 7/10 in intensity, intermittent, with radiation to back and left arm daily for the past month. Patient states that the pain usually lasted about 30 minutes and resolved completely. However her back pain is still persistent. Also reports associated diaphoresis in the morning. Patient states that the pain is not associate with exertion. no alleviating or aggravating factors reported. [place] [facility] on the way to ED. Reports over the past month she had daily chest pain. Patient also complained of trouble swallowing food recently. States that she has a feeling of food being stuck in the esophagus around the substernal area. She did drink water however pain did not disappear. Patient denies any nausea, vomiting, diarrhea. Patient states that the chest pains and pressure pain substernally with radiation to the back and also to the left arm. The pain is reproducible somehow by palpation in the back. Patient was seen by Dr. Weaver recently and had EKG done. EMS was called today. Patient was transported to ED for evaluation. Patient denies history hypertension or diabetes. Patient is an ex-smoker. Patient has family history of heart disease her father with multiple NH starting at the age of 48. Patient reports having stress over the past months. 10-24 to have STRESS TEST TODAY APPEARS TO BE SCHEDULED FOR STRESS TEST LATER TODAY APPEARS NONCARDIAC MAY BE RELATED TO MUSCULAR SKELETAL VS GI RELATED DW RN AND PT HAD NEGATIVE STRESS TEST HAD EGD WITH GI Physical Exam Vital signs: Vital Signs 09/15/18 10:17 09/15/18 11:34 09/15/18 13:19 Temperature 99.4 F Pulse Rate 84 76 83 Respiratory Rate 16 17 17 Blood Pressure 171/98 H 164/94 H 157/81 H Pulse Oximetry 100 100 100 09/15/18 15:00 09/15/18 19:00 09/15/18 20:00 Temperature 98.4 F Pulse Rate 85 82 Respiratory Rate 16 Blood Pressure 136/74 Pulse Oximetry 100 99 99 09/15/18 21:00 09/15/18 22:00 09/15/18 23:00 Temperature 98.4 F Pulse Rate 96 H 74 69 Respiratory Rate 16 Blood Pressure 128/76 Pulse Oximetry 98 09/16/18 00:00 09/16/18 00:38 09/16/18 01:00 Temperature Pulse Rate 70 70 Respiratory Rate Blood Pressure Pulse Oximetry 98 09/16/18 02:00 09/16/18 03:00 09/16/18 04:00 Temperature 98.0 F Pulse Rate 76 78 74 Respiratory Rate 16 Blood Pressure 128/66 Pulse Oximetry 99 09/16/18 05:00 09/16/18 06:00 09/16/18 07:00 Temperature 98.4 F Pulse Rate 76 72 78 Respiratory Rate 18 Blood Pressure 125/76 Pulse Oximetry 99 09/16/18 08:00 09/16/18 09:00 Temperature Pulse Rate 72 76 Respiratory Rate Blood Pressure Pulse Oximetry Intake & Output 09/15/18 09/16/18 09/16/18 18:59 06:59 18:59 Intake Total 240 / 240 720 / 720 Output Total 100 / 100 Balance 140 / 140 720 / 720 Weight 74.843 kg 74.8 kg Intake: Oral 240 / 240 720 / 720 Output: Urine 100 / 100 Other: # Voids 3 Date of Last Bowel Movement 09/15/18 09/15/18 Narrative: GENERAL: Very pleasant 47 yo F appearing younger than the stated age. SKIN: Warm and dry. HEAD: Atraumatic. Normocephalic. EYES: Pupils equal and round. No scleral icterus. No injection or drainage. ENT: No nasal bleeding or discharge. Mucous membranes pink and moist. NECK: Trachea midline. No JVD. CARDIOVASCULAR: Regular rate and rhythm. RESPIRATORY: No accessory muscle use. Clear to auscultation. Breath sounds equal bilaterally. GASTROINTESTINAL: Abdomen soft, non-tender, nondistended. Hepatic and splenic margins not palpable. MUSCULOSKELETAL: Left trapezius muscle tenderness and cervical paravertebral muscle spasm,, tender to palpation, Extremities without clubbing, cyanosis, or edema. No obvious deformities. NEUROLOGICAL: Awake and alert. No obvious cranial nerve deficits. Motor grossly within normal limits. Five out of 5 muscle strength in the arms and legs. Normal speech. PSYCHIATRIC: Appropriate mood and affect; insight and judgment normal. Results - Labs CBC & Chem 7: 09/16/18 05:06 09/16/18 05:06 Laboratory Results - last 24 hr 09/15/18 09/15/18 09/15/18 10:21 10:21 10:21 WBC 8.2 RBC 4.29 Hgb 13.1 Hct 38.6 MCV 89.8 MCH 30.6 MCHC 34.1 RDW 12.9 Plt Count 265 MPV 8.6 Neut % (Auto) 69.8 Lymph % (Auto) 21.3 [place] % (Auto) 7.1 Eos % (Auto) 1.2 Baso % (Auto) 0.6 Neut # (Auto) 5.7 Lymph # (Auto) 1.7 [place] # (Auto) 0.6 Eos # (Auto) 0.1 Baso # (Auto) 0.0 WBC Differential . Differential Comment Auto diff final PT 11.0 INR 1.1 APTT 23.5 L D-Dimer Quant (PE/DVT) 0.31 Sodium 139 Potassium 3.8 Chloride 108 H Carbon Dioxide 23.4 Anion Gap 8 BUN 16 Creatinine 0.86 Estimated GFR 70 L Random Glucose 97 Calcium 8.1 L Total Bilirubin 0.4 AST 12 L ALT 26 Alkaline Phosphatase 53 Total Creatine Kinase 100 Troponin I Less than 0.02 L Total Protein 7.5 Albumin 3.6 Triglycerides Cholesterol LDL Cholesterol, Calc HDL Cholesterol Cholesterol/HDL Ratio Lipase 132 Beta HCG, Qual Urine Color Urine Clarity Urine pH Ur Specific [place] Urine Protein Urine Glucose (UA) Urine Ketones Urine Occult Blood Urine Nitrate Urine Bilirubin Urine Urobilinogen Ur Leukocyte Esterase Urine RBC Urine WBC Ur Squamous Epith Cells Urine Bacteria Urine Mucus Micro UA Comment Ur Microscopic Review Urine Culture Comments 09/15/18 09/15/18 09/15/18 10:21 15:03 17:15 WBC RBC Hgb Hct MCV MCH MCHC RDW Plt Count MPV Neut % (Auto) Lymph % (Auto) [place] % (Auto) Eos % (Auto) Baso % (Auto) Neut # (Auto) Lymph # (Auto) [place] # (Auto) Eos # (Auto) Baso # (Auto) WBC Differential Differential Comment PT INR APTT D-Dimer Quant (PE/DVT) Sodium Potassium Chloride Carbon Dioxide Anion Gap BUN Creatinine Estimated GFR Random Glucose Calcium Total Bilirubin AST ALT Alkaline Phosphatase Total Creatine Kinase Troponin I Less than 0.02 L Total Protein Albumin Triglycerides 85 Cholesterol 217 H LDL Cholesterol, Calc 146 H HDL Cholesterol 54.1 Cholesterol/HDL Ratio 4.01 Lipase Beta HCG, Qual Urine Color Yellow Urine Clarity Hazy H Urine pH 5.0 Ur Specific [place] 1.055 H Urine Protein Negative Urine Glucose (UA) Negative Urine Ketones Negative Urine Occult Blood Negative Urine Nitrate Negative Urine Bilirubin Negative Urine Urobilinogen Less than 2 Ur Leukocyte Esterase Small H Urine RBC 2 Urine WBC 5 Ur Squamous Epith Cells 7 Urine Bacteria Rare H Urine Mucus Few H Micro UA Comment Culture not ind Ur Microscopic Review Not Reportable Urine Culture Comments Culture not ind 09/15/18 09/15/18 09/16/18 21:27 21:27 05:06 WBC 5.8 RBC 4.30 Hgb 13.0 Hct 39.0 MCV 90.7 MCH 30.3 MCHC 33.4 RDW 13.1 Plt Count 235 MPV 8.7 Neut % (Auto) 52.5 Lymph % (Auto) 35.2 [place] % (Auto) 8.1 H Eos % (Auto) 3.4 Baso % (Auto) 0.8 Neut # (Auto) 3.0 Lymph # (Auto) 2.0 [place] # (Auto) 0.5 Eos # (Auto) 0.2 Baso # (Auto) 0.0 WBC Differential . Differential Comment Auto diff final PT INR APTT D-Dimer Quant (PE/DVT) Sodium Potassium Chloride Carbon Dioxide Anion Gap BUN Creatinine Estimated GFR Random Glucose Calcium Total Bilirubin AST ALT Alkaline Phosphatase Total Creatine Kinase Troponin I Less than 0.02 L Total Protein Albumin Triglycerides Cholesterol LDL Cholesterol, Calc HDL Cholesterol Cholesterol/HDL Ratio Lipase Beta HCG, Qual Less than 1.0 Urine Color Urine Clarity Urine pH Ur Specific [place] Urine Protein Urine Glucose (UA) Urine Ketones Urine Occult Blood Urine Nitrate Urine Bilirubin Urine Urobilinogen Ur Leukocyte Esterase Urine RBC Urine WBC Ur Squamous Epith Cells Urine Bacteria Urine Mucus Micro UA Comment Ur Microscopic Review Urine Culture Comments 09/16/18 05:06 WBC RBC Hgb Hct MCV MCH MCHC RDW Plt Count MPV Neut % (Auto) Lymph % (Auto) [place] % (Auto) Eos % (Auto) Baso % (Auto) Neut # (Auto) Lymph # (Auto) [place] # (Auto) Eos # (Auto) Baso # (Auto) WBC Differential Differential Comment PT INR APTT D-Dimer Quant (PE/DVT) Sodium 141 Potassium 3.8 Chloride 109 H Carbon Dioxide 25.0 Anion Gap 7 BUN 12 Creatinine 0.87 Estimated GFR 69 L Random Glucose 84 Calcium 8.1 L Total Bilirubin 0.4 AST 10 L ALT 21 Alkaline Phosphatase 49 Total Creatine Kinase Troponin I Total Protein 6.9 D Albumin 3.3 L Triglycerides Cholesterol LDL Cholesterol, Calc HDL Cholesterol Cholesterol/HDL Ratio Lipase Beta HCG, Qual Urine Color Urine Clarity Urine pH Ur Specific [place] Urine Protein Urine Glucose (UA) Urine Ketones Urine Occult Blood Urine Nitrate Urine Bilirubin Urine Urobilinogen Ur Leukocyte Esterase Urine RBC Urine WBC Ur Squamous Epith Cells Urine Bacteria Urine Mucus Micro UA Comment Ur Microscopic Review Urine Culture Comments - Imaging Impressions Thoracic Aorta CT 09/15/18 10:18 CONCLUSION: No acute vascular findings. Small enhancing foci in the liver are likely benign, potentially a small FNH in segment . Follow-up with elective outpatient hepatic MRI with contrast suggested Chest X-Ray 09/15/18 10:19 CONCLUSION: Negative examination. - Procedures STRESS TEST--NOTED TO BE NEGATIVE Date of procedure: 09/16/18 Pre-op diagnosis: Dysphagia, chest pain Procedure: PROCEDURE PERFORMED EGD with biopsies PROCEDURE: The procedure, risks and benefits were discussed with Patient/POA and informed consent was obtained. Anesthesia sedated Patient with Diprivan. Patient was placed in the left lateral decubitus position. EGD: The Pentax videoscope was introduced through the oropharynx and advanced to the second portion of the duodenum under direct visualization. Retroflexion was performed in the stomach. FINDINGS: The esophagus this appeared to be unremarkable and within normal limits random biopsies were taken for further evaluation The stomach there was some patchy erythema in the antrum of unclear significance this was biopsied otherwise the gastric mucosa was unremarkable and within normal limits The duodenum appeared to be unremarkable and within normal limits ESTIMATED BLOOD LOSS: None SPECIMENS REMOVED: Esophageal and gastric biopsies COMPLICATIONS: None IMPRESSION: Mild gastritis Otherwise unremarkable PLAN: Await biopsies follow-up with GI post discharge Advance diet as tolerated Anesthesia: MAC Surgeon: Alden Elmore Condition: stable Disposition: floor Documented By: Alden Elmore MD 09/16/18 5225 Assessment and Plan - Plan Very pleasant 47-year-old female with past medical history of hyperlipidemia, anxiety who presented to the emergency room with complaints of chest pain, back pain pain with swallowing Chest pain radiating to the back and also left arm Back pain Muscle spasm Odynophagia Hyperlipidemia Anxiety Incidental 9.4 mm liver nodule found on CT Chest x-ray reviewed and negative CTA chest also reviewed and findings discussed with ER physician and also with the patient. There is no PE, normal aorta, incidental 9.4 mm liver nodule. Discussed with the patient to follow-up as outpatient imaging might need MRI of the liver as outpatient First troponin is negative, trend troponin is EKG reviewed no ischemic changes normal EKG. Will monitor on telemetry. Will repeat EKGs. Consult Dr. Hsu cardiology Patient also with odynophagia will consult GI Morphine for severe chest pain or breakthrough pain [place] 5/325 for pain And Flexeril 5 mg 3 times daily as needed some muscle relaxer Give Ativan prn for breakthrough anxiety Restart home medications as appropriate GI WAS CONSULTED FOR DYSPHAGIA/ODYNOPHAGIA- WOULD DO EGD AFTER CARDIAC CLEARANCE EGD WAS STABLE- WAS DISCHARGED DVT prophylaxis SCDs/teds ambulation STRESS TEST WAS NEGATIVE Code Status: FULL CODE Discussed Condition With: RN AND PT Discharge Planning: DC WHEN CLEARED BY CARDIO AND GI
--- NOTE | 2018-09-16 09:41 | P.DS ---
Date of admission: 09/15/18 12:33 Primary care physician: Callie Cruz Attending physician on discharge: Barney Strauss Anticipated date of discharge: 09/16/18 Brief History from admission: The patient is a very pleasant 47-year-old female with past medical history of hyperlipidemia, anxiety who came to the emergency room with complains of chest pain, back pain and dysphagia. Patient states that she had intermittent substernal chest pain 7/10 in intensity, intermittent, with radiation to back and left arm daily for the past month. Patient states that the pain usually lasted about 30 minutes and resolved completely. However her back pain is still persistent. Also reports associated diaphoresis in the morning. Patient states that the pain is not associate with exertion. no alleviating or aggravating factors reported. [place] [facility] on the way to ED. Reports over the past month she had daily chest pain. Patient also complained of trouble swallowing food recently. States that she has a feeling of food being stuck in the esophagus around the substernal area. She did drink water however pain did not disappear. Patient denies any nausea, vomiting, diarrhea. Patient states that the chest pains and pressure pain substernally with radiation to the back and also to the left arm. The pain is reproducible somehow by palpation in the back. Patient was seen by Dr. Weaver recently and had EKG done. EMS was called today. Patient was transported to ED for evaluation. Patient denies history hypertension or diabetes. Patient is an ex-smoker. Patient has family history of heart disease her father with multiple HI starting at the age of 48. Patient reports having stress over the past months. Patient update on day of discharge: Chief Complaint: chest pain, upper back pain, pain with swallowing History of Present Illness: The patient is a very pleasant 47-year-old female with past medical history of hyperlipidemia, anxiety who came to the emergency room with complains of chest pain, back pain and dysphagia. Patient states that she had intermittent substernal chest pain 7/10 in intensity, intermittent, with radiation to back and left arm daily for the past month. Patient states that the pain usually lasted about 30 minutes and resolved completely. However her back pain is still persistent. Also reports associated diaphoresis in the morning. Patient states that the pain is not associate with exertion. no alleviating or aggravating factors reported. [facility] on the way to ED. Reports over the past month she had daily chest pain. Patient also complained of trouble swallowing food recently. States that she has a feeling of food being stuck in the esophagus around the substernal area. She did drink water however pain did not disappear. Patient denies any nausea, vomiting, diarrhea. Patient states that the chest pains and pressure pain substernally with radiation to the back and also to the left arm. The pain is reproducible somehow by palpation in the back. Patient was seen by Dr. Weaver recently and had EKG done. EMS was called today. Patient was transported to ED for evaluation. Patient denies history hypertension or diabetes. Patient is an ex-smoker. Patient has family history of heart disease her father with multiple HI starting at the age of 48. Patient reports having stress over the past months. 10-24 to have STRESS TEST TODAY APPEARS TO BE SCHEDULED FOR STRESS TEST LATER TODAY APPEARS NONCARDIAC MAY BE RELATED TO MUSCULAR SKELETAL VS GI RELATED DW RN AND PT HAD NEGATIVE STRESS TEST HAD EGD WITH GI - NO STRICTURES DS: Diagnosis - Discharge Diagnosis (1) Hyperlipidemia Status: Chronic (2) Anxiety Status: Chronic (3) Chest pain Status: Acute (4) Dysphagia Status: Acute DS: Medications - Discharge Medications Prescriptions: atorvastatin [Lipitor] 40 mg PO DAILY #30 tab hydrocodone-acetaminophen 1 tab PO Q6H PRN #12 tab PRN Reason: Acute Pain lorazepam 0.5 mg PO Q8H PRN #9 tab PRN Reason: breakthrough anxiety methocarbamol [Robaxin] 500 mg PO TID #20 tab pantoprazole [Protonix] 40 mg PO BID #60 tab sertraline 50 mg PO DAILY #30 tab DS: Summary Hospital Course: Chief Complaint: chest pain, upper back pain, pain with swallowing History of Present Illness: The patient is a very pleasant 47-year-old female with past medical history of hyperlipidemia, anxiety who came to the emergency room with complains of chest pain, back pain and dysphagia. Patient states that she had intermittent substernal chest pain 7/10 in intensity, intermittent, with radiation to back and left arm daily for the past month. Patient states that the pain usually lasted about 30 minutes and resolved completely. However her back pain is still persistent. Also reports associated diaphoresis in the morning. Patient states that the pain is not associate with exertion. no alleviating or aggravating factors reported. [facility] on the way to ED. Reports over the past month she had daily chest pain. Patient also complained of trouble swallowing food recently. States that she has a feeling of food being stuck in the esophagus around the substernal area. She did drink water however pain did not disappear. Patient denies any nausea, vomiting, diarrhea. Patient states that the chest pains and pressure pain substernally with radiation to the back and also to the left arm. The pain is reproducible somehow by palpation in the back. Patient was seen by Dr. Weaver recently and had EKG done. EMS was called today. Patient was transported to ED for evaluation. Patient denies history hypertension or diabetes. Patient is an ex-smoker. Patient has family history of heart disease her father with multiple HI starting at the age of 48. Patient reports having stress over the past months. 10-24 to have STRESS TEST TODAY APPEARS TO BE SCHEDULED FOR STRESS TEST LATER TODAY APPEARS NONCARDIAC MAY BE RELATED TO MUSCULAR SKELETAL VS GI RELATED DW RN AND PT DC HOME IF NOT ABLE TO DO EGD TODAY RX WRITTE E-FORCSE Prescription Drug Monitoring Database has been queried and verified prior to prescribing the controlled substance. Acute pain exception. This patient has normal, predicted, physiological, and time limited response to an adverse mechanical stimulus associated with surgery, trauma, or acute illness as described in my notes. There is a lack of alternative treatment options other than to include the prescribed narcotic treatment for this condition. EFORCSE HAS BEEN CHECKED RX WRITTEN FOR PAIN AND MUSCLE SPASMS AND ANXIETY AND GERD DC IF NO EGD DONE TODAY EGD WAS DONE SEE REPORT - Time Spent with Patient Total time spent providing and/or coordinating discharge services: Greater than 30 minutes Exam Vital signs: Vital Signs 09/15/18 10:17 09/15/18 11:34 09/15/18 13:19 Temperature 99.4 F Pulse Rate 84 76 83 Respiratory Rate 16 17 17 Blood Pressure 171/98 H 164/94 H 157/81 H Pulse Oximetry 100 100 100 09/15/18 15:00 09/15/18 19:00 09/15/18 20:00 Temperature 98.4 F Pulse Rate 85 82 Respiratory Rate 16 Blood Pressure 136/74 Pulse Oximetry 100 99 99 09/15/18 21:00 09/15/18 22:00 09/15/18 23:00 Temperature 98.4 F Pulse Rate 96 H 74 69 Respiratory Rate 16 Blood Pressure 128/76 Pulse Oximetry 98 09/16/18 00:00 09/16/18 00:38 09/16/18 01:00 Temperature Pulse Rate 70 70 Respiratory Rate Blood Pressure Pulse Oximetry 98 09/16/18 02:00 09/16/18 03:00 09/16/18 04:00 Temperature 98.0 F Pulse Rate 76 78 74 Respiratory Rate 16 Blood Pressure 128/66 Pulse Oximetry 99 09/16/18 05:00 09/16/18 06:00 09/16/18 07:00 Temperature 98.4 F Pulse Rate 76 72 78 Respiratory Rate 18 Blood Pressure 125/76 Pulse Oximetry 99 09/16/18 08:00 09/16/18 09:00 Temperature Pulse Rate 72 76 Respiratory Rate Blood Pressure Pulse Oximetry Intake & Output 09/15/18 09/16/18 09/16/18 18:59 06:59 18:59 Intake Total 240 / 240 720 / 720 Output Total 100 / 100 Balance 140 / 140 720 / 720 Weight 74.843 kg 74.8 kg Intake: Oral 240 / 240 720 / 720 Output: Urine 100 / 100 Other: # Voids 3 Date of Last Bowel Movement 09/15/18 09/15/18 Narrative: GENERAL: Very pleasant 47 yo F appearing younger than the stated age. SKIN: Warm and dry. HEAD: Atraumatic. Normocephalic. EYES: Pupils equal and round. No scleral icterus. No injection or drainage. ENT: No nasal bleeding or discharge. Mucous membranes pink and moist. NECK: Trachea midline. No JVD. CARDIOVASCULAR: Regular rate and rhythm. RESPIRATORY: No accessory muscle use. Clear to auscultation. Breath sounds equal bilaterally. GASTROINTESTINAL: Abdomen soft, non-tender, nondistended. Hepatic and splenic margins not palpable. MUSCULOSKELETAL: Left trapezius muscle tenderness and cervical paravertebral muscle spasm,, tender to palpation, Extremities without clubbing, cyanosis, or edema. No obvious deformities. NEUROLOGICAL: Awake and alert. No obvious cranial nerve deficits. Motor grossly within normal limits. Five out of 5 muscle strength in the arms and legs. Normal speech. PSYCHIATRIC: Appropriate mood and affect; insight and judgment normal. Results Procedures completed during hospitalization: STRESS TEST WAS NEGATIVE Date of procedure: 09/16/18 Pre-op diagnosis: Dysphagia, chest pain Procedure: PROCEDURE PERFORMED EGD with biopsies PROCEDURE: The procedure, risks and benefits were discussed with Patient/POA and informed consent was obtained. Anesthesia sedated Patient with Diprivan. Patient was placed in the left lateral decubitus position. EGD: The Pentax videoscope was introduced through the oropharynx and advanced to the second portion of the duodenum under direct visualization. Retroflexion was performed in the stomach. FINDINGS: The esophagus this appeared to be unremarkable and within normal limits random biopsies were taken for further evaluation The stomach there was some patchy erythema in the antrum of unclear significance this was biopsied otherwise the gastric mucosa was unremarkable and within normal limits The duodenum appeared to be unremarkable and within normal limits ESTIMATED BLOOD LOSS: None SPECIMENS REMOVED: Esophageal and gastric biopsies COMPLICATIONS: None IMPRESSION: Mild gastritis Otherwise unremarkable PLAN: Await biopsies follow-up with GI post discharge Advance diet as tolerated Anesthesia: MAC Surgeon: Alden Elmore Condition: stable Disposition: floor Documented By: Alden Elmore MD ITS Impressions Thoracic Aorta CT 09/15/18 10:18 CONCLUSION: No acute vascular findings. Small enhancing foci in the liver are likely benign, potentially a small FNH in segment . Follow-up with elective outpatient hepatic MRI with contrast suggested Chest X-Ray 09/15/18 10:19 CONCLUSION: Negative examination. Myocardial Perfusion Scan Nuc Med 09/16/18 00:00 CONCLUSION: 1. Apparent stress-induced perfusion defect in the mid to inferior anterior wall which may be related to breast attenuation artifact. Correlation with EKG findings and history/physical exam is recommended. 2. Intact wall motion with EF of 70%. Labs on day of discharge: Labs from last 24 hours 09/16/18 09/16/18 09/15/18 05:06 05:06 21:27 WBC 5.8 RBC 4.30 Hgb 13.0 Hct 39.0 MCV 90.7 MCH 30.3 MCHC 33.4 RDW 13.1 Plt Count 235 MPV 8.7 Neut % (Auto) 52.5 Lymph % (Auto) 35.2 Villalba % (Auto) 8.1 H Eos % (Auto) 3.4 Baso % (Auto) 0.8 Neut # (Auto) 3.0 Lymph # (Auto) 2.0 Villalba # (Auto) 0.5 Eos # (Auto) 0.2 Baso # (Auto) 0.0 WBC Differential . Differential Comment Auto diff final PT INR APTT D-Dimer Quant (PE/DVT) Sodium 141 Potassium 3.8 Chloride 109 H Carbon Dioxide 25.0 Anion Gap 7 BUN 12 Creatinine 0.87 Estimated GFR 69 L Random Glucose 84 Calcium 8.1 L Total Bilirubin 0.4 AST 10 L ALT 21 Alkaline Phosphatase 49 Total Creatine Kinase Troponin I Total Protein 6.9 D Albumin 3.3 L Triglycerides Cholesterol LDL Cholesterol, Calc HDL Cholesterol Cholesterol/HDL Ratio Lipase Beta HCG, Qual Less than 1.0 Urine Color Urine Clarity Urine pH Ur Specific Gardners Urine Protein Urine Glucose (UA) Urine Ketones Urine Occult Blood Urine Nitrate Urine Bilirubin Urine Urobilinogen Ur Leukocyte Esterase Urine RBC Urine WBC Ur Squamous Epith Cells Urine Bacteria Urine Mucus Micro UA Comment Ur Microscopic Review Urine Culture Comments 09/15/18 09/15/18 09/15/18 21:27 17:15 15:03 WBC RBC Hgb Hct MCV MCH MCHC RDW Plt Count MPV Neut % (Auto) Lymph % (Auto) Villalba % (Auto) Eos % (Auto) Baso % (Auto) Neut # (Auto) Lymph # (Auto) Villalba # (Auto) Eos # (Auto) Baso # (Auto) WBC Differential Differential Comment PT INR APTT D-Dimer Quant (PE/DVT) Sodium Potassium Chloride Carbon Dioxide Anion Gap BUN Creatinine Estimated GFR Random Glucose Calcium Total Bilirubin AST ALT Alkaline Phosphatase Total Creatine Kinase Troponin I Less than 0.02 L Less than 0.02 L Total Protein Albumin Triglycerides Cholesterol LDL Cholesterol, Calc HDL Cholesterol Cholesterol/HDL Ratio Lipase Beta HCG, Qual Urine Color Yellow Urine Clarity Hazy H Urine pH 5.0 Ur Specific Gard[place] 1.055 H Urine Protein Negative Urine Glucose (UA) Negative Urine Ketones Negative Urine Occult Blood Negative Urine Nitrate Negative Urine Bilirubin Negative Urine Urobilinogen Less than 2 Ur Leukocyte Esterase Small H Urine RBC 2 Urine WBC 5 Ur Squamous Epith Cells 7 Urine Bacteria Rare H Urine Mucus Few H Micro UA Comment Culture not ind Ur Microscopic Review Not Reportable Urine Culture Comments Culture not ind 09/15/18 09/15/18 09/15/18 10:21 10:21 10:21 WBC RBC Hgb Hct MCV MCH MCHC RDW Plt Count MPV Neut % (Auto) Lymph % (Auto) Villalba % (Auto) Eos % (Auto) Baso % (Auto) Neut # (Auto) Lymph # (Auto) Villalba # (Auto) Eos # (Auto) Baso # (Auto) WBC Differential Differential Comment PT 11.0 INR 1.1 APTT 23.5 L D-Dimer Quant (PE/DVT) 0.31 Sodium 139 Potassium 3.8 Chloride 108 H Carbon Dioxide 23.4 Anion Gap 8 BUN 16 Creatinine 0.86 Estimated GFR 70 L Random Glucose 97 Calcium 8.1 L Total Bilirubin 0.4 AST 12 L ALT 26 Alkaline Phosphatase 53 Total Creatine Kinase 100 Troponin I Less than 0.02 L Total Protein 7.5 Albumin 3.6 Triglycerides 85 Cholesterol 217 H LDL Cholesterol, Calc 146 H HDL Cholesterol 54.1 Cholesterol/HDL Ratio 4.01 Lipase 132 Beta HCG, Qual Urine Color Urine Clarity Urine pH Ur Specific Gardners Urine Protein Urine Glucose (UA) Urine Ketones Urine Occult Blood Urine Nitrate Urine Bilirubin Urine Urobilinogen Ur Leukocyte Esterase Urine RBC Urine WBC Ur Squamous Epith Cells Urine Bacteria Urine Mucus Micro UA Comment Ur Microscopic Review Urine Culture Comments 09/15/18 10:21 WBC 8.2 RBC 4.29 Hgb 13.1 Hct 38.6 MCV 89.8 MCH 30.6 MCHC 34.1 RDW 12.9 Plt Count 265 MPV 8.6 Neut % (Auto) 69.8 Lymph % (Auto) 21.3 Villalba % (Auto) 7.1 Eos % (Auto) 1.2 Baso % (Auto) 0.6 Neut # (Auto) 5.7 Lymph # (Auto) 1.7 Villalba # (Auto) 0.6 Eos # (Auto) 0.1 Baso # (Auto) 0.0 WBC Differential . Differential Comment Auto diff final PT INR APTT D-Dimer Quant (PE/DVT) Sodium Potassium Chloride Carbon Dioxide Anion Gap BUN Creatinine Estimated GFR Random Glucose Calcium Total Bilirubin AST ALT Alkaline Phosphatase Total Creatine Kinase Troponin I Total Protein Albumin Triglycerides Cholesterol LDL Cholesterol, Calc HDL Cholesterol Cholesterol/HDL Ratio Lipase Beta HCG, Qual Urine Color Urine Clarity Urine pH Ur Specific Gardners Urine Protein Urine Glucose (UA) Urine Ketones Urine Occult Blood Urine Nitrate Urine Bilirubin Urine Urobilinogen Ur Leukocyte Esterase Urine RBC Urine WBC Ur Squamous Epith Cells Urine Bacteria Urine Mucus Micro UA Comment Ur Microscopic Review Urine Culture Comments - Impressions ITS Impressions Thoracic Aorta CT 09/15/18 10:18 CONCLUSION: No acute vascular findings. Small enhancing foci in the liver are likely benign, potentially a small FNH in segment . Follow-up with elective outpatient hepatic MRI with contrast suggested Chest X-Ray 09/15/18 10:19 CONCLUSION: Negative examination. Discharge Plan - Discharge Disposition Patient Disposition: 01 Discharge Home - Discharge Condition Condition: Good - Discharge Order Discharge Orders: Discharge Order (Routine); Ordered 09/16/18 Ordered By: Barney Strauss - Discharge Details Anticipated Discharge Date: 09/16/18 Discharge Comment: DC TO HOME IF STRESS TEST IS NEGATIVE AND WANTS TO GO HOME - Physicians Team Attending Provider: Barney Strauss Other Providers: Alyssia Hsu MD ; Alden Elmore MD
[2018-09-16] MEDS ORDERED: Regadenoson Inj 0.4 MG/5 ML Syringe IV.PUSH ONE (11:30)
--- NOTE | 2018-09-16 12:26 | NM ---
EXAM DATE: 09/16/2018 9:36 AM EDT AGE/SEX: 47 years / Female INDICATIONS:. . Sub-sternal chest pain. CLINICAL DATA: This is the patient's initial encounter. Patient reports that signs and symptoms have been present for 1 day and indicates a pain score of 4/10. MEDICAL/SURGICAL HISTORY: Hypercholesterolemia. . Breast augmentation. COMPARISON: [facility], CHEST 1V SINGLE AP, 09/15/2018. . DOSE: 8.5 mCi Tc 99m Myoview at rest 27.3 mCi [id number] at stress 0.4 mg Lexiscan STRESS SYMPTOMS: Weird feeling. EJECTION FRACTION: 70 % TECHNIQUE: The patient underwent pharmacologic stress with infusion of prescribed dose. Continuous ECG tracing was monitored during stress. Gated SPECT imaging was performed after stress and conventi onal SPECT imaging was performed at rest. The examination was performed on a SPECT/CT scanner, both attenuation and non-corrected datasets were reviewed. FINDINGS: Distribution: The maximum perfused segment at stress is in the anterolateral wall. Perfusion Study: Apparent perfusion defect in the mid to inferior anterior wall. Gated Study: There are intact wall motion and wall thickening without hypokinetic or dyskinetic segm ents. The ejection fraction is calculated at 70%. RISK CATEGORY: Low (<1% Annual Motality Rate) CONCLUSION: 1. Apparent stress-induced perfusion defect in the mid to inferior anterior wall which may be relate d to breast attenuation artifact. Correlation with EKG findings and history/physical exam is recommen ded. 2. Intact wall motion with EF of 70%. Electronically signed by: Carlos Chin MD 09/16/2018 12:25 PM EDT
[2018-09-16 13:10] VITALS: O2SAT 98
--- NOTE | 2018-09-16 14:16 | P.PNGI ---
Subjective Interval history: Patient sitting up at bedside, post cardiac stress test. Reports continued back and chest wall discomfort. Awaiting cardiac clearance to proceed with EGD <Griselda Nowak - Last Filed: 09/16/18 14:10> Physical Exam Vital signs: Vital Signs 09/15/18 15:00 09/15/18 19:00 09/15/18 20:00 Temperature 98.4 F Pulse Rate 85 82 Respiratory Rate 16 Blood Pressure 136/74 Pulse Oximetry 100 99 99 09/15/18 21:00 09/15/18 22:00 09/15/18 23:00 Temperature 98.4 F Pulse Rate 96 H 74 69 Respiratory Rate 16 Blood Pressure 128/76 Pulse Oximetry 98 09/16/18 00:00 09/16/18 00:38 09/16/18 01:00 Temperature Pulse Rate 70 70 Respiratory Rate Blood Pressure Pulse Oximetry 98 09/16/18 02:00 09/16/18 03:00 09/16/18 04:00 Temperature 98.0 F Pulse Rate 76 78 74 Respiratory Rate 16 Blood Pressure 128/66 Pulse Oximetry 99 09/16/18 05:00 09/16/18 06:00 09/16/18 07:00 Temperature 98.4 F Pulse Rate 76 72 78 Respiratory Rate 18 Blood Pressure 125/76 Pulse Oximetry 99 09/16/18 08:00 09/16/18 09:00 09/16/18 10:00 Temperature Pulse Rate 72 76 78 Respiratory Rate Blood Pressure Pulse Oximetry 09/16/18 12:00 09/16/18 13:00 09/16/18 13:08 Temperature 98.3 F Pulse Rate 80 80 76 Respiratory Rate 18 Blood Pressure 126/72 Pulse Oximetry 98 Intake & Output 09/15/18 09/16/18 09/16/18 18:59 06:59 18:59 Intake Total 240 / 240 720 / 720 Output Total 100 / 100 Balance 140 / 140 720 / 720 Weight 74.843 kg 74.8 kg Intake: Oral 240 / 240 720 / 720 Output: Urine 100 / 100 Other: # Voids 3 Date of Last Bowel Movement 09/15/18 09/15/18 - Constitutional no acute distress - Routine HEENT Exam Head: Present: normocephalic - Routine Respiratory Exam Present: CTA bilaterally. Absent: accessory muscle use - Routine Cardiovascular Exam Present: RRR - Routine Abdominal Exam Present: soft, normoactive bowel sounds. Absent: tenderness, distended, guarding, firm - Routine Extremities Exam Present: full ROM - Routine Skin Exam Present: dry, warm - Routine Neurological Exam Present: alert, oriented X3 - Routine Psychiatric Exam Present: normal affect, cooperative <EliuGriselda - Last Filed: 09/16/18 14:10> Vital signs: Vital Signs 09/15/18 19:00 09/15/18 20:00 09/15/18 21:00 Temperature 98.4 F Pulse Rate 85 82 96 H Respiratory Rate 16 Blood Pressure 136/74 Pulse Oximetry 99 99 09/15/18 22:00 09/15/18 23:00 09/16/18 00:00 Temperature 98.4 F Pulse Rate 74 69 70 Respiratory Rate 16 Blood Pressure 128/76 Pulse Oximetry 98 09/16/18 00:38 09/16/18 01:00 09/16/18 02:00 Temperature Pulse Rate 70 76 Respiratory Rate Blood Pressure Pulse Oximetry 98 09/16/18 03:00 09/16/18 04:00 09/16/18 05:00 Temperature 98.0 F Pulse Rate 78 74 76 Respiratory Rate 16 Blood Pressure 128/66 Pulse Oximetry 99 09/16/18 06:00 09/16/18 07:00 09/16/18 08:00 Temperature 98.4 F Pulse Rate 72 78 72 Respiratory Rate 18 Blood Pressure 125/76 Pulse Oximetry 99 09/16/18 09:00 09/16/18 10:00 09/16/18 12:00 Temperature Pulse Rate 76 78 80 Respiratory Rate Blood Pressure Pulse Oximetry 09/16/18 13:00 09/16/18 13:08 09/16/18 14:00 Temperature 98.3 F Pulse Rate 80 76 76 Respiratory Rate 18 Blood Pressure 126/72 Pulse Oximetry 98 09/16/18 15:00 09/16/18 16:00 09/16/18 17:00 Temperature 98.6 F Pulse Rate 79 78 76 Respiratory Rate 18 Blood Pressure 124/70 Pulse Oximetry 98 Intake & Output 09/15/18 09/16/18 09/16/18 18:59 06:59 18:59 Intake Total 240 / 240 720 / 720 100 / 100 Output Total 100 / 100 3 / 3 Balance 140 / 140 720 / 720 97 / 97 Weight 74.843 kg 74.8 kg Intake: Oral 240 / 240 720 / 720 100 / 100 Output: Urine 100 / 100 3 / 3 Other: # Voids 3 Date of Last Bowel Movement 09/15/18 09/15/18 # Bowel Movements 0 <Alden Elmore E - Last Filed: 09/16/18 17:29> Results - Labs CBC & Chem 7: 09/16/18 05:06 09/16/18 05:06 Laboratory Results - last 24 hr 09/15/18 09/15/18 09/15/18 15:03 17:15 21:27 WBC RBC Hgb Hct MCV MCH MCHC RDW Plt Count MPV Neut % (Auto) Lymph % (Auto) [place] % (Auto) Eos % (Auto) Baso % (Auto) Neut # (Auto) Lymph # (Auto) [place] # (Auto) Eos # (Auto) Baso # (Auto) WBC Differential Differential Comment Sodium Potassium Chloride Carbon Dioxide Anion Gap BUN Creatinine Estimated GFR Random Glucose Calcium Total Bilirubin AST ALT Alkaline Phosphatase Troponin I Less than 0.02 L Less than 0.02 L Total Protein Albumin Beta HCG, Qual Urine Color Yellow Urine Clarity Hazy H Urine pH 5.0 Ur Specific [place] 1.055 H Urine Protein Negative Urine Glucose (UA) Negative Urine Ketones Negative Urine Occult Blood Negative Urine Nitrate Negative Urine Bilirubin Negative Urine Urobilinogen Less than 2 Ur Leukocyte Esterase Small H Urine RBC 2 Urine WBC 5 Ur Squamous Epith Cells 7 Urine Bacteria Rare H Urine Mucus Few H Micro UA Comment Culture not ind Ur Microscopic Review Not Reportable Urine Culture Comments Culture not ind 09/15/18 09/16/18 09/16/18 21:27 05:06 05:06 WBC 5.8 RBC 4.30 Hgb 13.0 Hct 39.0 MCV 90.7 MCH 30.3 MCHC 33.4 RDW 13.1 Plt Count 235 MPV 8.7 Neut % (Auto) 52.5 Lymph % (Auto) 35.2 [place] % (Auto) 8.1 H Eos % (Auto) 3.4 Baso % (Auto) 0.8 Neut # (Auto) 3.0 Lymph # (Auto) 2.0 [place] # (Auto) 0.5 Eos # (Auto) 0.2 Baso # (Auto) 0.0 WBC Differential . Differential Comment Auto diff final Sodium 141 Potassium 3.8 Chloride 109 H Carbon Dioxide 25.0 Anion Gap 7 BUN 12 Creatinine 0.87 Estimated GFR 69 L Random Glucose 84 Calcium 8.1 L Total Bilirubin 0.4 AST 10 L ALT 21 Alkaline Phosphatase 49 Troponin I Total Protein 6.9 D Albumin 3.3 L Beta HCG, Qual Less than 1.0 Urine Color Urine Clarity Urine pH Ur Specific [place] Urine Protein Urine Glucose (UA) Urine Ketones Urine Occult Blood Urine Nitrate Urine Bilirubin Urine Urobilinogen Ur Leukocyte Esterase Urine RBC Urine WBC Ur Squamous Epith Cells Urine Bacteria Urine Mucus Micro UA Comment Ur Microscopic Review Urine Culture Comments - Imaging Impressions Myocardial Perfusion Scan Nuc Med 09/16/18 00:00 CONCLUSION: 1. Apparent stress-induced perfusion defect in the mid to inferior anterior wall which may be related to breast attenuation artifact. Correlation with EKG findings and history/physical exam is recommended. 2. Intact wall motion with EF of 70%. - Procedures STRESS TEST <Griselda Nowak - Last Filed: 09/16/18 14:10> - Labs CBC & Chem 7: 09/16/18 05:06 09/16/18 05:06 Laboratory Results - last 24 hr 09/15/18 09/15/18 09/15/18 17:15 21:27 21:27 WBC RBC Hgb Hct MCV MCH MCHC RDW Plt Count MPV Neut % (Auto) Lymph % (Auto) [place] % (Auto) Eos % (Auto) Baso % (Auto) Neut # (Auto) Lymph # (Auto) [place] # (Auto) Eos # (Auto) Baso # (Auto) WBC Differential Differential Comment Sodium Potassium Chloride Carbon Dioxide Anion Gap BUN Creatinine Estimated GFR Random Glucose Calcium Total Bilirubin AST ALT Alkaline Phosphatase Troponin I Less than 0.02 L Total Protein Albumin Beta HCG, Qual Less than 1.0 Urine Color Yellow Urine Clarity Hazy H Urine pH 5.0 Ur Specific [place] 1.055 H Urine Protein Negative Urine Glucose (UA) Negative Urine Ketones Negative Urine Occult Blood Negative Urine Nitrate Negative Urine Bilirubin Negative Urine Urobilinogen Less than 2 Ur Leukocyte Esterase Small H Urine RBC 2 Urine WBC 5 Ur Squamous Epith Cells 7 Urine Bacteria Rare H Urine Mucus Few H Micro UA Comment Culture not ind Ur Microscopic Review Not Reportable Urine Culture Comments Culture not ind 09/16/18 09/16/18 05:06 05:06 WBC 5.8 RBC 4.30 Hgb 13.0 Hct 39.0 MCV 90.7 MCH 30.3 MCHC 33.4 RDW 13.1 Plt Count 235 MPV 8.7 Neut % (Auto) 52.5 Lymph % (Auto) 35.2 [place] % (Auto) 8.1 H Eos % (Auto) 3.4 Baso % (Auto) 0.8 Neut # (Auto) 3.0 Lymph # (Auto) 2.0 [place] # (Auto) 0.5 Eos # (Auto) 0.2 Baso # (Auto) 0.0 WBC Differential . Differential Comment Auto diff final Sodium 141 Potassium 3.8 Chloride 109 H Carbon Dioxide 25.0 Anion Gap 7 BUN 12 Creatinine 0.87 Estimated GFR 69 L Random Glucose 84 Calcium 8.1 L Total Bilirubin 0.4 AST 10 L ALT 21 Alkaline Phosphatase 49 Troponin I Total Protein 6.9 D Albumin 3.3 L Beta HCG, Qual Urine Color Urine Clarity Urine pH Ur Specific [place] Urine Protein Urine Glucose (UA) Urine Ketones Urine Occult Blood Urine Nitrate Urine Bilirubin Urine Urobilinogen Ur Leukocyte Esterase Urine RBC Urine WBC Ur Squamous Epith Cells Urine Bacteria Urine Mucus Micro UA Comment Ur Microscopic Review Urine Culture Comments - Imaging Impressions Myocardial Perfusion Scan Nuc Med 09/16/18 00:00 CONCLUSION: 1. Apparent stress-induced perfusion defect in the mid to inferior anterior wall which may be related to breast attenuation artifact. Correlation with EKG findings and history/physical exam is recommended. 2. Intact wall motion with EF of 70%. <Alden Emlore - Last Filed: 09/16/18 17:29> Assessment and Plan (1) Dysphagia Status: Acute Code(s): R13.10 - Dysphagia, unspecified - Plan 09/16/2018 Midsternal chest wall pain that radiates to the back/dysphagia/history of GERD Patient sitting up at bedside, post cardiac stress test. Awaiting clearance to proceed with EGD. Patient n.p.o. Plan -N.p.o. for planned EGD -EGD with possible dilation following cardiac clearance -Antiemetics and analgesics as per attending -Supportive care -Further recommendations to follow based on patient status and findings This patient has been seen by myself and Dr. Elmore and this note is written on his behalf - Attending Attestation Dr. Elmore <Griselda Nowak - Last Filed: 09/16/18 14:10> (1) Dysphagia Status: Acute Code(s): R13.10 - Dysphagia, unspecified - Plan Patient seen and examined Agree with above Continue with current supportive care Monitor labs Patient has been cleared by cardiology and we will proceed with an upper endoscopy next <Alden Elmore E - Last Filed: 09/16/18 17:29> <Griselda Nowka - Last Filed: 09/16/18 14:10> (1) Dysphagia Qualifiers: Dysphagia type: esophageal phase Qualified Code(s): R13.10 - Dysphagia, unspecified <Alden Elmore E - Last Filed: 09/16/18 17:29> (1) Dysphagia Qualifiers: Dysphagia type: esophageal phase Qualified Code(s): R13.10 - Dysphagia, unspecified
[2018-09-16 15:55] VITALS: BP 124/70; TEMP 98.6
[2018-09-16 17:06] VITALS: PULSE 76
--- NOTE | 2018-09-16 17:31 | P.PCN ---
Date of procedure: 09/16/18 Pre-op diagnosis: Dysphagia, chest pain Procedure: PROCEDURE PERFORMED EGD with biopsies PROCEDURE: The procedure, risks and benefits were discussed with Patient/POA and informed consent was obtained. Anesthesia sedated Patient with Diprivan. Patient was placed in the left lateral decubitus position. EGD: The Pentax videoscope was introduced through the oropharynx and advanced to the second portion of the duodenum under direct visualization. Retroflexion was performed in the stomach. FINDINGS: The esophagus this appeared to be unremarkable and within normal limits random biopsies were taken for further evaluation The stomach there was some patchy erythema in the antrum of unclear significance this was biopsied otherwise the gastric mucosa was unremarkable and within normal limits The duodenum appeared to be unremarkable and within normal limits ESTIMATED BLOOD LOSS: None SPECIMENS REMOVED: Esophageal and gastric biopsies COMPLICATIONS: None IMPRESSION: Mild gastritis Otherwise unremarkable PLAN: Await biopsies follow-up with GI post discharge Advance diet as tolerated Anesthesia: MAC Surgeon: Alden Elmore Condition: stable Disposition: floor
--- NOTE | 2018-09-17 01:12 | ECG ---
Date Performed: 09/15/2018 Time Performed: 10:25:28 PTAGE: 47 years EKG: Sinus rhythm NORMAL ECG NO PREVIOUS TRACING DOCTOR: Edward Vang Interpretating Date/Time 09/17/2018 01:11:24
== END 2018-09-16 18:46 | disposition home or self-care (01) ==
LOC: NEPC 10:04 → NEDA 12:33 → HCPC 14:15
PROVIDERS: ADMIT Hospitalist; ATTEND Hospitalist
PROC: PANENDO (2018-09-16 17:00)